=== PATIENT | female | born 2000 | race African-American/Black ===

== ENCOUNTER 2022-04-01 08:02 | Emergency (ER) | payer OTHER ==
[~2022-04-01] VITALS: Ht 165.1 cm; Wt 90.9 kg
[2022-04-01] MEDS ORDERED: CETI10CH PO (08:12)
[2022-04-01] MEDS ORDERED: ALBUTEROL 90 MCG/ACT 8GM HFA INHALER INH ONE (10:25)
[2022-04-01] MEDS ORDERED: hydrOXYzine 50 MG TAB PO ONE (10:25)
[2022-04-01] MEDS ORDERED: predniSONE 20 MG TAB PO ONE (10:25)
[2022-04-01] MEDS ORDERED: VENTAER INH (11:44)
[2022-04-01] MEDS ORDERED: PRED20TA PO (11:44)
[2022-04-01] MEDS ORDERED: HYDR-3363 PO (11:44)
[2022-04-01 11:54] VITALS: BP 120/70
== END 2022-04-01 11:51 | disposition home or self-care (01) ==
LOC: M ED 08:02
DX: T78.40XA Allergy, unspecified, initial encounter (principal); R21 Rash and other nonspecific skin eruption; J45.909 Unspecified asthma, uncomplicated; Z79.51 Long term (current) use of inhaled steroids; Z79.899 Other long term (current) drug therapy
CPT/HCPCS: 94640; 99283; J7512

== ENCOUNTER 2022-04-13 07:15 | Emergency (ER) | payer OTHER ==
[~2022-04-13] VITALS: Ht 165.1 cm; Wt 97.7 kg
[~2022-04-13 07:15] MED LIST: CETI10CH PO; HYDR-3363 PO; PRED20TA PO; VENTAER INH
[2022-04-13 07:16] VITALS: BP 124/78
[2022-04-13] MEDS ORDERED: TRIA1OI TOP (08:22)
== END 2022-04-13 08:33 | disposition home or self-care (01) ==
LOC: M ED 07:15
DX: L30.9 Dermatitis, unspecified (principal); F17.200 Nicotine dependence, unspecified, uncomplicated; Z79.51 Long term (current) use of inhaled steroids; Z79.899 Other long term (current) drug therapy